=== PATIENT | female | born 1975 | race African-American/Black ===

== ENCOUNTER 2018-12-03 19:29 | Emergency (ER) | payer MEDICAID, OTHER ==
[~2018-12-03] VITALS: Ht 170.2 cm; Wt 85.7 kg
[2018-12-03] MEDS ORDERED: LORAZEPAM 1 MG TABLET ONE (19:58)
[2018-12-03] MEDS ORDERED: OLANZAPINE 5 MG TABLET ONE (19:58)
[2018-12-03] MEDS ORDERED: OLANZAPINE 5 MG TABLET PO ONE (20:00)
[2018-12-03] MEDS ORDERED: LORAZEPAM 1 MG TABLET PO ONE (20:00)
--- NOTE | 2018-12-03 20:00 | NUR ---
PT MICHAELA. C/O "[facility] CALLED AND REPORTED PATIENT ACTING WEIRD IN PUBLIC" -SOB NOTED. -N/V PT REFUSING TO TALK TO EMS/NURSING STAFF. AWARE
[2018-12-03 20:17] LABS: BASOPHILS # (AUTO) 0.1 /CMM (0.0-0.2); BASOPHILS % (AUTO) 0.9 % (0.0-2.0); HEMATOCRIT 35 % (33-45); HEMOGLOBIN 11.7 g/dL (11.5-14.8); LYMPHOCYTES # (AUTO) 2.4 /CMM (0.8-4.8); LYMPHOCYTES % (AUTO) 34.8 % (20.0-44.0); MEAN CORPUSCULAR HGB CONC 33 g/dl (31.0-36.0); MEAN CORPUSCULAR VOLUME 86 fL (82-100); MONOCYTES # (AUTO) 0.4 /CMM (0.1-1.30); MONOCYTES % (AUTO) 6.2 % (2.0-12.0); NEUTROPHILS # (AUTO) 3.9 /CMM (1.8-8.9); NEUTROPHILS % (AUTO) 57.1 % (43.0-81.0); PLATELET COUNT (AUTO) 290 /CMM (150-450); RED BLOOD CELL COUNT(AUTO) 4.06 MIL/uL (4.0-5.2); WHITE BLOOD COUNT (AUTO) 6.8 K/uL (4.3-11.0)
[2018-12-03 20:24] LABS: CARBON DIOXIDE 24 mmol/L (21-32); CHLORIDE 106 mmol/L (98-107); CREATININE 0.7 mg/dL (0.6-1.3); GLUCOSE 88 mg/dL (74-106); POTASSIUM 3.6 mmol/L (3.5-5.1); SODIUM SERUM 139 mmol/L (136-145); UREA NITROGEN, BLOOD 13 mg/dL (7-18)
[2018-12-03 20:30] LABS: ALANINE AMINOTRANSFERASE 16 U/L (12-78); ALBUMIN 3.8 g/dL (3.4-5.0); ALCOHOL, BLOOD < 3 mg/dL (0-0); ALKALINE PHOSPHATASE 71 U/L (46-116); ASPARTATE AMINOTRANSFERASE 11 U/L (15-37); BILIRUBIN,DIRECT 0.1 mg/dL (0.0-0.2); BILIRUBIN,TOTAL 0.6 mg/dL (0.2-1.0)
[2018-12-03 20:31] LABS: SALICYLATE 2.6 mg/dL (2.8-20.0)
[2018-12-03 20:32] LABS: ACETAMINOPHEN 0 ug/ml (10-30)
[2018-12-03 20:45] LABS: APPEARANCE,URINE Clear (CLEAR); BILIRUBIN,URINE SMALL (NEGATIVE); BLOOD, URINE Moderate Ery/uL (NEGATIVE); COLOR,URINE Yellow (YELLOW); KETONES,URINE Trace (NEGATIVE); LEUKOCYTE ESTERASE ,URINE Negative (NEGATIVE); NITRITE, URINE Negative (NEGATIVE); PH,URINE 5.5 (5.0-8.0); PROTEIN,URINE Trace mg/dl (NEGATIVE); UGLUCOSE Negative (NEGATIVE); UROBILINOGEN,URINE 0.2 EU/dL (0.2)
[2018-12-03 20:50] LABS: BACTERIA,URINE Moderate /HPF (None Seen); SQUAMOUS EPITHELIAL CELL,UR Few /HPF (None Seen)
--- NOTE | 2018-12-03 23:04 | NUR ---
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
--- NOTE | 2018-12-04 02:22 | NUR ---
GIORGI CLEARNED PT FOR DISCHARGE. AGREED TO ALLOW PT TO SLEEP IN BED UNTIL SIMULATION SPECIALIST IN THE AM. PT RESTING COMFORTABLY. GIVEN FOOD AND DRINK. NO ACUTE DISTRESS AT THIS TIME. WILL CONTINUE TO MONITOR.
--- NOTE | 2018-12-04 03:03 | NUR ---
PATIENT RESTING COMFORTABLY. PROVIDED WITH WARM BLANKET. WILL CONTINUE TO MONITOR.
--- NOTE | 2018-12-04 06:09 | NUR ---
Patient is resting comfortably in bed with eyes closed. Easily aroused. VSS
--- NOTE | 2018-12-04 08:31 | NUR ---
PATIENT REFUSED TO WAIT FOR MIXER DRY FOOD PRODUCTS, PER PATIENT, "I WILL GO TO MY FRIEND'S HOUSE" FOOD TRAY PROVIDED AND TOLERATED WELL. TAP CARD GIVEN. PATIENT SIGNED HOMELESS PATIENT WAIVER FORM. DISCHARGE INSTRUCTIONS PROVIDED AND PATIENT VERBALIZED UNDERSTANDING. [facility] RESOURCES GIVEN. PATIENT IN NO DISTRESS, DENIES SI/HI. LEFT IN STABLE CONDITION.
[2018-12-04 08:33] VITALS: BP 127/82
== END 2018-12-04 08:34 | disposition home or self-care (01) ==
LOC: ER 19:31
DX: F43.20 Adjustment disorder, unspecified (principal); I10 Essential (primary) hypertension
CPT/HCPCS: 36415; 80048-TC; 80076-TC; 80305; 81000-TC; 84703-TC; 85025-TC; 87086-TC; G0480